=== PATIENT | male | born 2000 | race Two or more races ===

== ENCOUNTER 2020-05-20 14:53 | Emergency (ER) | payer OTHER ==
[~2020-05-20] VITALS: Ht 175.3 cm; Wt 65.8 kg
[2020-05-20 15:12] VITALS: BP 131/75
[2020-05-20] MEDS ORDERED: BACTRIM DS TAB1 EAC1 ORAL (15:17)
[2020-05-20] MEDS ORDERED: IBUPROFEN600 M1 ORAL (15:17)
[2020-05-20 15:31] VITALS: BP 128/76
--- NOTE | 2020-05-20 16:07 | Emergency Room Report ---
History of Present Illness General Chief Complaint: Skin Rash/Abscess Source: Patient Present Illness HPI 20-year-old male with no significant past medical history presents with swelling to his right thumb for 5 days. He reports moderate pain. Denies any drainage, fever, trauma. No prior incidence of same. No medications taken. Allergies: Coded Allergies: No Known Allergies (Unverified , 05/20/20) COVID-19 Screening Contact w/high risk pt: No Experienced COVID-19 symptoms?: No COVID-19 Testing performed LEARNING SUPPORT SERVICES DIRECTOR: No Patient History Past Medical History: see triage record Reviewed Nursing Documentation: PMH: Agreed; PSxH: Agreed Nursing Documentation-PMH Past Medical History: No Stated History Review of Systems All Other Systems: negative except mentioned in HPI Physical Exam Vital Signs Date Time Temp Pulse Resp B/P (MAP) Pulse Ox O2 Delivery O2 Flow Rate FiO2 05/20/20 14:58 97.9 88 17 131/75 (93) 98 Room Air Sp02 EP Interpretation: reviewed, normal General Appearance: normal inspection, well appearing, no apparent distress, alert, GCS 15, non-toxic ENT: EOM grossly intact, normal voice Neck: normal inspection, full range of motion, supple, no meningismus Respiratory: chest non-tender, lungs clear, normal breath sounds, no respiratory distress Cardiovascular #1: normal peripheral pulses, regular rate, rhythm Musculoskeletal: normal inspection, normal range of motion, gait/station normal, non-tender Neurologic: alert, motor strength/tone normal, family preservation caseworker III-XII nml as tested, oriented x3, sensory intact, speech normal Psychiatric: judgement/insight normal, mood/affect normal Skin: no rash, normal color, warm/dry, other - Fluid collection to right first digit nailbed. Fluctuant, no drainage, mild tenderness. Full ROM. No sausage digit. Lymphatic: no adenopathy Procedures Incision and Drainage Incision and Drainage : Consent: Verbal Site: Right thumb paronychia Blade Size: 11 I & D Procedure: betadine prep, sterile dressing applied Wound Location: upper extremity Wound Length (cm): 1 Patient Tolerated: Well Complications: None Medical Decision Making PA Attestation Dr. Barry is my supervising physician whom patient management and care has been discussed with. Diagnostic Impression: Primary Impression: Paronychia ER Course Pt. presents to the ED c/o paronychia to right thumb for 5 days. Ddx considered but are not limited to abscess, cellulitis, tenosynovitis, gout Vital signs: are WNL, pt. is afebrile H&PE are most consistent with paronychia ORDERS: none required at this time, the diagnosis is clinical ED INTERVENTIONS: Incision and drainage successful with no complications. DISCHARGE: At this time pt. is stable for d/c to home. Will provide printed patient care instructions, and prescription for Bactrim and ibuprofen. Advised to follow up outpatient in 1-2 days. Care plan and follow up instructions have been discussed with the patient prior to discharge. Return precautions given. Last Vital Signs Date Time Temp Pulse Resp B/P (MAP) Pulse Ox O2 Delivery O2 Flow Rate FiO2 05/20/20 15:12 97.9 17 131/75 98 Room Air 05/20/20 14:58 88 Disposition: HOME, SELF-CARE Condition: Stable Scripts Ibuprofen* (MOTRIN*) 600 Mg Tablet 600 MG ORAL FOUR TIMES A DAY PRN for For Pain, #30 TAB 0 Refills Prov: Ximena Ramos PEzio 05/20/20 Trimethoprim/Sulfamethoxazole 160/800* (BACTRIM DS TABLET*) 1 Each Tablet 1 TAB ORAL TWICE A DAY for 10 Days, #20 TAB Prov: Ximena Ramos 05/20/20 Referrals: [facility],REFERRING (PCP) Patient Instructions: Paronychia, Heey-ch-Pkef Additional Instructions: Take medications as directed. Warm compress/soak several times a day. Return if no improvement in 2-3 days. Follow up with a Primary Care Provider in 1-2 days, even if your symptoms have resolved. --Please review list of primary care clinics, if you do not already have a prima ry care provider Return to the emergency department sooner if new symptoms occur, or current symptoms become worse. Ximena Ramos May 20, 2020 16:07
== END 2020-05-20 15:31 | disposition home or self-care (01) ==
LOC: EMR 15:10
DX: L03.011 Cellulitis of right finger (principal)
CPT/HCPCS: 10060; Z7502; 99283